=== PATIENT | male | born 1940 | race Caucasian/White ===

== ENCOUNTER 2018-06-11 19:37 | Observation (INO) ==
[2018-06-11] MEDS ORDERED: LIDOCAINE JEL 2% 1 TUBE 30GM TOPICAL ONE (19:43)
--- NOTE | 2018-06-11 20:18 | Emergency Department Note ---
Male Urogenital HPI - General Chief complaint: Urogenital-Male Stated complaint: bleeding post turp Time Seen by Provider: 06/11/18 19:39 Source: patient Mode of arrival: ambulatory Limitations: no limitations - History of Present Illness HPI Narrative: 78-year-old male presents with urinary retention and blood clots causing his urinary retention and the catheter. He had a TURP this morning by Dr. Maharaj. He has had intermittent problems with this all day and has been to the office a couple times and they change the catheter and irrigated it but the last couple hours he feels like he really needs to void and is unable to void again. It appears to have clots in his catheter and he thinks it has clotted off again. Is very uncomfortable and feels like he needs to void. No fever chills. No nausea, vomiting, or diarrhea. He is on Eliquis but he has not taken it for a couple days as he was directed not to. - Related Data Home Medications Medication Instructions Recorded Confirmed apixaban 5 mg tablet 5 mg PO BID 06/24/16 06/11/18 Cholestoff Plus 900 mg PO 07/02/16 06/11/18 lisinopril 20 mg tablet 20 mg PO BID tab 01/19/18 06/11/18 Previous Rx's Medication Instructions Recorded dutasteride 0.5 mg capsule 0.5 mg PO TID #90 cap 01/19/18 tamsulosin 0.4 mg capsule 0.4 mg PO QDAY #90 cap 01/19/18 Allergies Allergy/AdvReac Type Severity Reaction Status Date / Time penicillin G AdvReac Severe Rash Verified 06/11/18 14:56 Past Medical History - Past Medical History [facility] Narrative: Medical History (Last Reviewed 01/19/18 @ 09:26 by Deb Ji RN) Change in bowel habits (Chronic) Arthritis (Chronic) Prostate troubles (Chronic) Fatigue (Chronic) Hypertension (Chronic) Hyperlipidemia (Chronic) Neoplasm of skin, benign (Chronic) Hemangioma (Chronic) Osteopenia (Chronic) Scar (Chronic) Obstructive nephropathy (Chronic) Urinary urgency (Chronic) Family history of prostate cancer (Chronic) BPH (benign prostatic hyperplasia) (Chronic) Afib (Acute) Hemorrhoids (Acute) Sleep apnea (Acute) - Social History smoking status: Never smoker Alcohol use: Reports: None Drug use: Reports: none Physical Exam Limitations: no limitations General appearance: alert, in no apparent distress Head: atraumatic, normocephalic, normal inspection Eye: Present: normal appearance. Absent: conjunctival injection ENT: mucous membranes moist Chest: Present: normal inspection, symmetric chest wall rise Respiratory: Present: normal lung sounds bilaterally. Absent: respiratory distress, wheezes, accessory muscle use Cardiovascular: Present: regular rate, normal heart sounds Abdominal: Present: soft, distention (Distention over the bladder), normal bowel sounds, other (Catheter not draining and obviously plugged with clots on arrival.). Absent: tenderness, guarding, mass Neurological: Present: alert, oriented X3 Psychiatric: Present: normal affect, normal mood Skin: Present: warm, dry, intact, normal color Course Course Narrative: Dr. Maharaj did call and tell us this patient was coming. He wanted us to do some continuous bladder irrigation until clear. We did place a irrigation catheter, patient tolerated well and was doing better once he is able to void but still having some spasms and pain as well. I did speak with Dr. Maharaj who would like to have me put some admitting orders in him for him for continuous bladder irrigation throughout the night and he will see him in the morning. Vital Signs Temperature 97.5 F 06/11/18 19:37 Pulse Rate 82 06/11/18 19:37 Respiratory Rate 14 06/11/18 19:37 Blood Pressure 159/117 06/11/18 19:37 Pulse Oximetry (%) 97 06/11/18 19:37 Temperature 97.5 F 06/11/18 19:37 Pulse Rate 82 06/11/18 19:37 Respiratory Rate 14 06/11/18 19:37 Blood Pressure 159/117 06/11/18 19:37 Pulse Oximetry (%) 97 06/11/18 19:37 Urogenital-Male - Lab Data Result diagrams: 06/11/18 20:15 06/11/18 20:15 Disposition Pt seen by AIR QUALITY MANAGER/PA only: Yes Clinical Impression: Urinary retention, S/P TURP Disposition: Xfer As Outpt/Obs ([facility]) Condition: Fair Referrals: Johny Walker MD [Primary Care Provider] - Edil Maharaj MD [Physician] - Time of Disposition: 20:30
[2018-06-11] MEDS ORDERED: ONDANSETRON 4 MG/2 ML VIAL IV PRN (20:28)
[2018-06-11] MEDS: HYDROmorphone 2 MG/ML VIAL IV PRN (20:45)
[2018-06-11] MEDS ORDERED: CEPHALEXIN 500 MG CAPSULE PO SCH (21:00)
[2018-06-11 21:13] LABS: Basophils # (Auto) 0.1 K/mcL (0.0-0.3); Basophils % (Auto) 0.3 % (0.0-2.0); Eosinophils # (Auto) 0 K/mcL (0.0-0.7); Eosinophils % (Auto) 0 % (0.0-7.0); Granulocytes % (Auto) 93.2 % (38.0-78.0); Lymphocytes # (Auto) 0.6 K/mcL (1.5-4.8); Lymphocytes % (Auto) 3.3 % (15.5-49.0); Mean Cell Volume 92.9 fL (80.0-100.0); Mean Corpuscular Hemoglobin 31.6 pg (26.0-34.0); Monocytes # (Auto) 0.6 K/mcL (0.1-0.9); Monocytes % (Auto) 3.2 % (1.0-12.0); Platelet Count 269 K/mcL (140-440); RBC 4.62 M/mcL (4.50-5.90); Red Cell Distribution Width 13.4 % (11.5-14.5)
[2018-06-11 21:47] LABS: ALT/SGPT 15 U/l (0-40); Albumin 4.4 gm/dL (3.2-5.2); Albumin/Globulin Ratio 1.6 (1.0-2.3); Alkaline Phosphatase 123 U/L (39-117); Blood Urea Nitrogen 13 mg/dl (8-23)
[2018-06-11] MEDS: 0.9 % SODIUM CHLORIDE 1,000 ML IV SCH (21:57)
[2018-06-12 05:39] LABS: ALT/SGPT 14 U/l (0-40); Albumin 3.8 gm/dL (3.2-5.2); Albumin/Globulin Ratio 1.7 (1.0-2.3); Alkaline Phosphatase 114 U/L (39-117); Blood Urea Nitrogen 12 mg/dl (8-23)
--- NOTE | 2018-06-12 07:23 | History and Physical Report ---
DATE OF ADMISSION: 06/11/2018 ADMITTING DIAGNOSIS: Hematuria. HISTORY OF PRESENT ILLNESS: The patient is a 78-year-old gentleman who earlier today went to surgery for photovaporization of the prostate for symptomatic BPH. He is on Eliquis and at the time of surgery we did not stop this because of his atrial fibrillation and his urine was fairly clear when he went home. During the day, he did develop clots and had to be seen in the office twice for irrigation. He continued to have some bleeding and was seen in the emergency room last night. The emergency room did do irrigation and admitted him for observation. He denies any lightheadedness or dizziness, feels like he empties his bladder. He presents now for treatment. PAST MEDICAL HISTORY: Arthritis, hyperlipidemia, atrial fibrillation, sleep apnea. PAST SURGICAL HISTORY: Photovaporization of the prostate. FAMILY HISTORY: Stroke, atrial fibrillation. SOCIAL HISTORY: He is , retired, does not smoke, and does not drink. CURRENT MEDICATIONS: 1. Eliquis. 2. Lisinopril. 3. Selenium. 4. Zinc. 5. Flomax. ALLERGIES: PENICILLIN G. REVIEW OF SYSTEMS: HEART AND CARDIAC: No chest pain, irregular rhythm. ABDOMEN: Denies any bowel problems. No constipation. NEUROLOGICAL: No stroke, no headaches. The rest of a 14-point review of systems is negative. PHYSICAL EXAMINATION: GENERAL: This is a very pleasant gentleman in no apparent distress. VITAL SIGNS: As listed per nurse's notes. NECK: Supple. Trachea in the midline. HEART: Regular rate and rhythm. LUNGS: Clear to auscultation. ABDOMEN: Soft, nontender. GENITOURINARY: Scrotum without lesion. Epididymides without cyst. Testicles normal size and consistency, meatus in its proper position, does have a Vazquez catheter, which is draining red-tinged urine. Prostate is 35 grams, smooth, no nodules. Seminal vesicles without tenderness. Anus and perineum are normal. INTEGUMENT: Without lesions. LYMPHATIC: No adenopathy. PSYCHOLOGICAL: Alert and oriented x3. Cranial nerves II-XII grossly intact. LABORATORY DATA: His hematocrit is 43 and his sodium level is 129. IMPRESSION AND PLAN: Patient with clot retention. This is secondary to his Eliquis. He stopped the Eliquis and we have been keeping him on continuous bladder irrigation. His urine is clearing and I was able to irrigate some clots free this morning. We will continue the irrigation to see how he does. Hopefully, we will be able to discontinue the Vazquez in the near future. I have gone over this with him. He understands and will follow up while in the hospital. MANASA:jerome Job ID: [id number] Doc ID: [id number] Edil Maharaj MD
[2018-06-12] MEDS ORDERED: TAMSULOSIN 0.4 MG CAPSULE PO SCH (09:00)
[2018-06-12] MEDS ORDERED: LISINOPRIL 10 MG TABLET PO SCH (09:00)
[2018-06-12] MEDS: APIXABAN 5 MG TABLET PO SCH ×2 (09:49→20:24)
[2018-06-12] MEDS: CEPHALEXIN 500 MG CAPSULE PO SCH ×2 (09:58→20:23)
[2018-06-12] MEDS: ZINC SULFATE 50 MG CAPSULE PO SCH (09:59)
[2018-06-12] MEDS: 0.9 % SODIUM CHLORIDE 1,000 ML IV SCH (11:25)
[2018-06-12] MEDS ORDERED: LISINOPRIL 20 MG TABLET PO SCH (21:00)
[2018-06-13] MEDS: 0.9 % SODIUM CHLORIDE 1,000 ML IV SCH (00:01)
[2018-06-13] MEDS: HYDROmorphone 2 MG/ML VIAL IV PRN (04:16)
[2018-06-13 06:38] LABS: Mean Cell Volume 93.6 fL (80.0-100.0); Mean Corpuscular HGB Conc 33.9 g/dL (31.0-36.0); Mean Corpuscular Hemoglobin 31.7 pg (26.0-34.0); Platelet Count 174 K/mcL (140-440); RBC 2.83 M/mcL (4.50-5.90); Red Cell Distribution Width 13.9 % (11.5-14.5)
[2018-06-13 07:05] LABS: Blood Urea Nitrogen 12 mg/dl (8-23)
[2018-06-13] MEDS: ZINC SULFATE 50 MG CAPSULE PO SCH (09:52)
[2018-06-13] MEDS: CEPHALEXIN 500 MG CAPSULE PO SCH (09:52)
--- NOTE | 2018-06-13 12:06 | Discharge Plan ---
Discharge Plan - Patient/Caregiver Discharge Instructions Activity: increase activity as tolerated Diet: Regular Diet Additional Instructions: continue antibiotic - Follow up Plan Follow up with: Johny Walker MD [Primary Care Provider] - Edil Maharaj MD [Physician] - Disposition: Home, Self-Care Prognosis: Good Rehab Potential: Good
--- NOTE | 2018-06-13 12:09 | General Surgery Progress Note ---
Surgical - Auxillary Note - Subjective Patient Information: Note initiated : 06/13/18 at 12:08 pm Service Date, if different from initiated Date: [] Patient: Johny Umaña 78 y/o M admitted on 06/11/18 for Bleeding Post Turp/ Hematuria. Chief Complaint: [] CBI stopped and catheter removed. Pt. able to void. will d/c to home.
--- NOTE | 2018-06-13 16:38 | Discharge Summary ---
DATE OF ADMISSION: 06/11/2018 DATE OF DISCHARGE: 06/13/2018 ADMITTING DIAGNOSIS: Hematuria. POSTOPERATIVE DIAGNOSIS: Hematuria. PROCEDURE DONE: Continuous bladder irrigation. STAFF: Edil Maharaj MD. INDICATION: The patient is a 78-year-old gentleman, who underwent a photovaporization of the prostate on 06/11. Postoperatively, he did have bleeding. He was irrigated in the office twice and still continued to bleed. He was seen in the emergency room and was admitted for hematuria. HOSPITAL COURSE: The patient was started on continuous irrigation, and his Eliquis was stopped. Eventually his urine cleared and this morning, we removed his catheter, and he was able to void spontaneously. His urine is clear. We would keep him off the Eliquis for another day or so and then start the antibiotics. I have explained this to him and he understands. If there is a problem, he will give us a call. His hematocrit decreased down to 27, but was asymptomatic and this may be dilutional. We will plan to see him back in 2 weeks and if there is a problem before then, he will let me know. RZ:in Job ID: [id number] Doc ID: [id number] Edil Maharaj MD
== END 2018-06-13 12:40 | disposition home or self-care (01) ==
LOC: ED 19:37 → MEDSUR 19:37

== ENCOUNTER 2021-10-13 09:21 | Inpatient (IN) ==
[2021-10-13] MEDS ORDERED: IOPAMIDOL 100 ML BOTTLE IV ONE (09:22)
--- NOTE | 2021-10-13 09:32 | Emergency Department Note ---
HPI General Chief complaint: Abdominal Pain Stated complaint: abdominal distention Time Seen by Provider: 10/13/21 09:32 Source: patient and family Mode of arrival: wheelchair Limitations: no limitations History of Present Illness HPI Narrative: 81-year-old male with past medical history of pancreatic cancer status post Whipple, BPH, and hypertension presenting with abdominal distention. He states over the last week he has had worsening abdominal distention that is now becoming painful and is having difficulty sleeping. He is scheduled for paracentesis on Friday but came in because he feels like he cannot wait that long. He also reports that he has not been eating much and has had multiple episodes of nonbloody, nonbilious emesis. States his last bowel movement was 3 days ago. He does not feel like he is passing gas. States he is currently being treated for his pancreatic cancer at the cancer center locally. No fever, chest pain, shortness of breath, dysuria, hematuria, or leg swelling. He is on Eliquis but last took it yesterday morning. Related Data Home Medications Medication Instructions Recorded Confirmed apixaban 5 mg tablet (Eliquis) 5 mg PO BID 06/24/16 10/13/21 irbesartan 300 mg tablet 300 mg PO QDAY 12/15/18 10/13/21 metformin 500 mg tablet 500 mg PO QDAY tab 12/15/18 10/13/21 levothyroxine 50 mcg capsule 50 mcg PO QDAY 09/24/19 10/13/21 [id number] 1 cap PO 5XD 10/13/21 10/13/21 36,000-114,000-180,000 unit capsule,delay rel (Creon) Previous Rx's Medication Instructions Recorded CPAP #1 ea 09/29/19 Auto-PaP #1 ea 10/07/19 Allergies Allergy/AdvReac Type Severity Reaction Status Date / Time penicillin G AdvReac Severe Rash Verified 10/13/21 09:24 seasonal allergies AdvReac Intermediate Watery Eye Uncoded 02/16/20 14:45 Review of Systems ROS ROS Narrative: Narrative: Constitutional: Denies fever or chills ENT ED: Denies throat pain Cardiovascular: Denies chest pain or palpitations Respiratory: Denies shortness of breath or cough Gastrointestinal: Reports abdominal pain, nausea and vomiting; Denies diarrhea, hematochezia or melena Genitourinary: Denies dysuria or frequency Musculoskeletal: Denies back pain or joint swelling Integumentary: Denies rash Neurological: Denies headache or weakness Psychiatric: Denies anxiety Endocrine: Denies fatigue Hematological/Lymphatic: Denies easy bleeding or easy bruising PFSH Narrative Patient History Narrative: Narrative: Medical/Surgical/Family History All Active Problems (Updated 10/13/21 @ 13:57 by Kirill Venegas MD) Fever (Acute) Hyperglycemia (Acute) Cystitis (Acute) Fever of unknown origin (FUO) (Acute) Ascites (Acute) Hyponatremia (Acute) Mumps (Chronic) Measles (Chronic) Obstructive sleep apnea (Chronic) Urinary retention (Chronic) S/P TURP (Chronic) Hemorrhoids (Chronic) Afib (Chronic) Sleep apnea (Chronic) Change in bowel habits (Chronic) Arthritis (Chronic) Prostate troubles (Chronic) Fatigue (Chronic) Hypertension (Chronic) Hyperlipidemia (Chronic) Neoplasm of skin, benign (Chronic) Hemangioma (Chronic) Osteopenia (Chronic) Scar (Chronic) Obstructive nephropathy (Chronic) Urinary urgency (Chronic) Family history of prostate cancer (Chronic) BPH (benign prostatic hyperplasia) (Chronic) Medical History (Updated 10/13/21 @ 13:57 by Kirill Venegas MD) Afib Arthritis BPH (benign prostatic hyperplasia) Change in bowel habits Family history of prostate cancer Fatigue Hemangioma Hemorrhoids Hyperlipidemia Hypertension Measles Mumps Neoplasm of skin, benign Obstructive nephropathy Obstructive sleep apnea Osteopenia Prostate troubles Scar Sleep apnea Urinary urgency Surgical History History of prostate surgery (~06/11/19) Status post catheter ablation of atrial fibrillation (~06/2013) 07/25/2016 Family History Mother Stroke Father Coronary heart disease Prostate cancer Hypertension Brother Afib Son Diabetes Family/Other Gout Paternal Uncle Diabetes mellitus, type II Siblings Cancer Siblings, Children Coronary heart disease Siblings Social History Smoking Status: Never smoker Alcohol Intake Frequency: does not drink Substance Use: does not use Exam Narrative Narrative: Narrative: General Limitations: no limitations General appearance: Present alert and in no apparent distress Head Head: Present atraumatic and normocephalic Eye Eye: Present normal appearance and EOMI; Absent scleral icterus or conjunctival injection ENT ENT: Present mucous membranes moist Neck Neck: Present normal inspection, full ROM and trachea midline; Absent meningismus or lymphadenopathy Chest Chest: Present symmetric chest wall rise Respiratory Respiratory: Present normal lung sounds bilaterally; Absent respiratory distress, wheezes, stridor, accessory muscle use or prolonged expiratory phase Cardiovascular Cardiovascular: Present regular rate and normal rhythm; Absent systolic murmur or diastolic murmur Adbominal Abdominal: Present distention (Moderate distention present, abdomen not peritonitic); Absent tenderness, guarding, rebound, rigidity, organomegaly or mass Extremities Extremities: Present normal inspection; Absent pretibial edema Back Back: Present normal inspection; Absent CVA tenderness (R) or CVA tenderness (L) Neurological Neurological: Present alert and oriented X3; Absent motor sensory deficit Psychiatric Psychiatric: Present normal affect and normal mood Skin Skin: Present warm (WNL) and dry Course Consultations Consultation #1: Dr. Golden, hospitalist Time: 14:01 Vital Signs Vital signs: Vital Signs Pulse Rate 98 H 10/13/21 09:22 Respiratory Rate 16 10/13/21 09:22 Blood Pressure 133/76 10/13/21 09:22 Pulse Oximetry (%) 98 10/13/21 09:22 Pulse Rate 88 10/13/21 13:30 Respiratory Rate 16 10/13/21 09:22 Blood Pressure 138/84 10/13/21 13:30 Pulse Oximetry (%) 98 10/13/21 13:30 MDM MDM Narrative Medical decision making narrative: 81-year-old male presenting with abdominal distention in the setting of pancreatic cancer. He also reportedly had an outpatient CT which showed malignant lesions in the abdomen. Vital signs are stable. Abdomen is distended but not tender. Given his decreased bowel movements and vomiting, will obtain labs and CT abdomen to evaluate for bowel obstruction. Labs notable for leukocytosis to 16.1 and hyponatremia to 124. He was given 1 L of normal saline. CT abdomen shows peritoneal carcinomatosis with massive ascites but no evidence of bowel obstruction. Will admit for hydration, as well as diagnostic and therapeutic paracentesis. Patient endorsed to Dr. Golden, admitting hospitalist. Lab Data Lab results reviewed: Yes I reviewed the patient's lab results. Result diagrams: 10/13/21 10:01 10/13/21 10:01 Labs: Lab Results 10/13/21 10/13/21 10/13/21 Range/Units 10:01 10:01 10:01 WBC 16.1 H (4.5-11.0) K/mcL RBC 3.72 L (4.63-6.08) M/mcL Hgb 9.8 L (13.7-17.5) g/dL Hct 29.8 L (40.1-51.0) % MCV 80.1 (80.0-100.0) fL MCH 26.3 (26.0-34.0) pg MCHC 32.9 (31.0-36.0) g/dL RDW 15.7 H (11.5-14.5) % Plt Count 790 H (140-440) K/mcL MPV 9.4 (7.4-10.4) fL Neut % (Auto) 84.9 H (38.0-78.0) % Lymph % (Auto) 4.2 L (15.5-49.0) % Worth % (Auto) 10.6 (1.0-12.0) % Eos % (Auto) 0.1 (0.0-7.0) % Baso % (Auto) 0.2 (0.0-2.0) % Lymph # (Auto) 0.67 L (1.50-4.80) K/mcL Worth # (Auto) 1.70 H (0.10-0.90) K/mcL Eos # (Auto) 0.02 (0.00-0.70) K/mcL Baso # (Auto) 0.04 (0.00-0.30) K/mcL Absolute Neutrophils 13.68 H (1.80-8.00) K/mcL PT 17.8 H (11.9-14.5) sec INR 1.4 H (0.9-1.1) Sodium 124 L (133-145) mmol/L Potassium 3.4 (3.3-5.1) mmol/L Chloride 86 L (96-108) mmol/L Carbon Dioxide 22 (22-30) mmol/L Anion Gap 16.0 (8.0-16.0) BUN 19 (8-23) mg/dL Creatinine 1.1 (0.7-1.2) mg/dL POC Creatinine (0.6-1.2) mg/dL GFR Calculation 63 Glucose 173 H (70-105) mg/dL Calcium 8.5 L (8.6-10.4) mg/dL Total Bilirubin 0.4 (0.1-1.0) mg/dL AST 22 (<40) U/L ALT 12 (<40) U/L Alkaline Phosphatase 149 H (39-117) U/L Total Protein 6.1 (5.9-8.4) gm/dL Albumin 3.3 (3.2-5.2) gm/dL Globulin 2.8 (2.2-3.7) gm/dL Albumin/Globulin Ratio 1.2 (1.0-2.3) Lipase 4 L (7-60) U/L 10/13/21 Range/Units 10:15 WBC (4.5-11.0) K/mcL RBC (4.63-6.08) M/mcL Hgb (13.7-17.5) g/dL Hct (40.1-51.0) % MCV (80.0-100.0) fL MCH (26.0-34.0) pg MCHC (31.0-36.0) g/dL RDW (11.5-14.5) % Plt Count (140-440) K/mcL MPV (7.4-10.4) fL Neut % (Auto) (38.0-78.0) % Lymph % (Auto) (15.5-49.0) % Worth % (Auto) (1.0-12.0) % Eos % (Auto) (0.0-7.0) % Baso % (Auto) (0.0-2.0) % Lymph # (Auto) (1.50-4.80) K/mcL Worth # (Auto) (0.10-0.90) K/mcL Eos # (Auto) (0.00-0.70) K/mcL Baso # (Auto) (0.00-0.30) K/mcL Absolute Neutrophils (1.80-8.00) K/mcL PT (11.9-14.5) sec INR (0.9-1.1) Sodium (133-145) mmol/L Potassium (3.3-5.1) mmol/L Chloride (96-108) mmol/L Carbon Dioxide (22-30) mmol/L Anion Gap (8.0-16.0) BUN (8-23) mg/dL Creatinine (0.7-1.2) mg/dL POC Creatinine 1.2 (0.6-1.2) mg/dL GFR Calculation Glucose (70-105) mg/dL Calcium (8.6-10.4) mg/dL Total Bilirubin (0.1-1.0) mg/dL AST (<40) U/L ALT (<40) U/L Alkaline Phosphatase (39-117) U/L Total Protein (5.9-8.4) gm/dL Albumin (3.2-5.2) gm/dL Globulin (2.2-3.7) gm/dL Albumin/Globulin Ratio (1.0-2.3) Lipase (7-60) U/L ED POC Tests ED POC Tests: DANIELLA - SARS Antigen Negative Discharge Plan Patient/Caregiver Discharge Instructions Pt seen by SUPERVISOR CELL MAINTENANCE/PA only: No Clinical Impression: Ascites, Hyponatremia Patient Disposition: Xfer As Inpt ([facility]) Condition: Fair Follow up with: Jennifer Wright MD [Primary Care Provider] - Prescriptions: No Action (DME) CPAP Qty: 1 0RF Rx Instructions: pressure at [id number] pressure with mask and supplies. (DME) Auto-PaP Qty: 1 0RF Rx Instructions: change pressures to [id number]. metformin 500 mg tablet 500 mg PO QDAY 0RF irbesartan 300 mg tablet 300 mg PO QDAY 0RF apixaban [Eliquis] 5 mg tablet 5 mg PO BID 0RF levothyroxine 50 mcg capsule 50 mcg PO QDAY 0RF Creon 36,000-114,000- 180,000 unit capsule,delayed release(DR/EC) 1 cap PO 5XD 0RF
[2021-10-13 10:24] LABS: POC Creatinine 1.2 mg/dL (0.6-1.2)
[2021-10-13] MEDS ORDERED: 0.9 % SODIUM CHLORIDE 500 ML IV ONE ×2 (10:38→13:27)
[2021-10-13 10:39] LABS: Basophils # (Auto) 0.04 K/mcL (0.00-0.30); Basophils % (Auto) 0.2 % (0.0-2.0); Eosinophils # (Auto) 0.02 K/mcL (0.00-0.70); Eosinophils % (Auto) 0.1 % (0.0-7.0); Hematocrit 29.8 % (40.1-51.0); Hemoglobin 9.8 g/dL (13.7-17.5); Lymphocytes # (Auto) 0.67 K/mcL (1.50-4.80); Lymphocytes % (Auto) 4.2 % (15.5-49.0); Mean Cell Volume 80.1 fL (80.0-100.0); Mean Corpuscular HGB Conc 32.9 g/dL (31.0-36.0); Mean Platelet Volume 9.4 fL (7.4-10.4); Monocytes % (Auto) 10.6 % (1.0-12.0); Neutrophils % (Auto) 84.9 % (38.0-78.0); Platelet Count 790 K/mcL (140-440); RBC 3.72 M/mcL (4.63-6.08); Red Cell Distribution Width 15.7 % (11.5-14.5); WBC 16.1 K/mcL (4.5-11.0)
[2021-10-13 11:00] LABS: ALT/SGPT 12 U/L (<40); AST/SGOT 22 U/L (<40); Albumin 3.3 gm/dL (3.2-5.2); Albumin/Globulin Ratio 1.2 (1.0-2.3); Alkaline Phosphatase 149 U/L (39-117); Bilirubin,Total 0.4 mg/dL (0.1-1.0); Blood Urea Nitrogen 19 mg/dL (8-23); Calcium 8.5 mg/dL (8.6-10.4); Carbon Dioxide 22 mmol/L (22-30); Chloride 86 mmol/L (96-108); Globulin 2.8 gm/dL (2.2-3.7); Glomerular Filtration Rate 63; Glucose 173 mg/dL (70-105); INR 1.4 (0.9-1.1); Prothrombin Time 17.8 sec (11.9-14.5)
--- NOTE | 2021-10-13 12:47 | Cat Scan Report ---
CLINICAL INFORMATION: History of pancreatic cancer. Ascites distention COMPARISON: Abdomen CT 04/18/2010 and MRI four 11/04/2019 TECHNIQUE: Following enteric contrast, 80 cc of Isovue-370 were injected intravenously, and 60 seconds later, 0.625 mm helical slices were obtained from the mid heart through the subtrochanteric regions. Following reconstruction, 2.5 mm sagittal, coronal and axial reformatted images were processed and reviewed at bone, lung and soft tissue windows. Five minutes later, 0.625 mm helical slices were obtained from the mid heart through the kidneys and viewed at soft tissue windows.The exam was performed using radiation dose optimization techniques including, but not limited to, automated exposure control, adjustment of the mA and/or kV according to patient size and use of iterative reconstruction technique. FINDINGS: The lung bases are clear. Small bilateral pleural effusions appreciated.. The visualized heart is grossly normal. Abdominal images show the liver is decreased in size with mildly inhomogeneous suggestive, but not diagnostic, of cirrhosis. A 20 mm low-attenuation lesion in the posterior segment of the right hepatic lobe is likely a metastases. The gallbladder is surgically absent. Whipple procedure changes including resection of the pancreatic head neck, duodenum and common bile duct. Anastomosis of the jejunum to the pancreatic body and choledochojejunostomy appreciated. Typical postoperative appearance. The spleen, both adrenal glands kidneys and aorta including aortic branches are normal in size configuration and attenuation without significant focal lesion. Pelvic images through the prostate is moderately enlarged and inhomogeneous. There is a 10 mm polyp arising from the posterior bladder base. Extensive peritoneal carcinomatosis features massive ascites, scattered omental caking and stranding and distortion of the small bowel mesentery. There is a 5 cm metastatic deposit over the peritoneal reflection in the inferior left hepatic lobe low. Bone windows show no osseous abnormality IMPRESSION: 1. Status post Whipple procedure for pancreatic carcinoma. Extensive peritoneal carcinomatosis featuring massive ascites, scattered omental caking, stranding and distortion of the small bowel mesentery with a 5 cm metastatic deposit over the peritoneal reflection of the left hepatic lobe. There is also a 2 cm metastasis in the posterior segment of the right hepatic lobe. 2. Small bilateral pleural effusions. 3. Possible cirrhosis-diminutive liver with inhomogeneous attenuation. 4. 10 mm polyp arising from the posterior urinary bladder base. 5. Moderate prostate enlargement with inhomogeneous attenuation. This likely represents benign prostatic hypertrophy, but prostatic malignancy not excluded Interpreted and Authenticated by: Antony Gill 10/13/21
[2021-10-13] MEDS ORDERED: morphine 2 MG/ML VIAL IV ONE (14:49)
[2021-10-13] MEDS ORDERED: ACETAMINOPHEN 325 MG TABLET PO PRN (15:26)
[2021-10-13] MEDS ORDERED: ONDANSETRON 4 MG/2 ML VIAL IV PRN (15:26)
[2021-10-13] MEDS ORDERED: oxyCODONE HCL 5 MG TABLET PO PRN (15:26)
[2021-10-13] MEDS ORDERED: PROCHLORPERAZINE 10 MG/2 ML VIAL IV PRN (15:26)
[2021-10-13] MEDS ORDERED: HYDROmorphone 0.5 MG/0.5 ML SYRINGE IV PRN (15:26)
[2021-10-13] MEDS ORDERED: traZODone HCL 50 MG TABLET PO PRN (15:26)
[2021-10-13] MEDS ORDERED: NITROGLYCERIN 0.4 MG TAB.SUBL SL PRN (15:26)
[2021-10-13] MEDS ORDERED: BISACODYL 10 MG SUPP.RECT PR PRN (15:26)
[2021-10-13] MEDS ORDERED: MAGNESIUM HYDROXIDE 30 ML ORAL.SUSP PO PRN (15:26)
[2021-10-13] MEDS ORDERED: MAG HYDROX/AL HYDROX/SIMETH 30 ML ORAL.SUSP PO PRN (15:26)
[2021-10-13] MEDS ORDERED: ALBUTEROL SULFATE 2.5 MG/3 ML NEBULIZER NEB PRN (15:26)
[2021-10-13] MEDS ORDERED: NALOXONE HCL 0.4 MG/ML VIAL IV PRN (15:26)
--- NOTE | 2021-10-13 15:42 | Internal Med History&Physical ---
HPI History of Present Illness Patient information: Note initiated : 10/13/21 at 3:32 pm Service Date, if different from initiated Date: [] Patient: Johny Umaña 81 y/o M admitted on for abdominal distention. Chief Complaint: [] Chief complaint: abdominal distention History of present illness: Mr. Umaña is a 81 year old M wit h/o Cancer of the pancreas, status post Whipple's procedure approximately 2 years ago, subsequently developed recurrence and omental metastases, has been chemotherapy followed oncology locally. The patient it seems has not responded well to the chemotherapy agent. The patient is scheduled for an immunotherapy based chemotherapy next week. Over the last 1 week the patient has not been feeling well, he has had decreased appetite, nausea whenever he tries to eat some food, and progressive distention of abdomen. He denies any cough fever or chills. He denies any diarrhea, denies any blood in stools. No melena reported. The patient was scheduled for an outpatient paracentesis next week, however because of severe discomfort the patient presented to the hospital today. On my evaluation patient is hemodynamically stable, afebrile, lab work shows hyponatremia, patient is on Eliquis and last dose of Eliquis was yesterday morning. Given that the patient is in able to tolerate p.o., significant distention of the abdomen, patients can be admitted to the hospital for further management. Review of Systems All systems: reviewed and no additional remarkable complaints except as stated PFSH PFSH All Active Problems Ascites (Acute) Fever (Acute) Hyperglycemia (Acute) Cystitis (Acute) Fever of unknown origin (FUO) (Acute) Hyponatremia (Acute) Mumps (Chronic) Measles (Chronic) Obstructive sleep apnea (Chronic) Urinary retention (Chronic) S/P TURP (Chronic) Hemorrhoids (Chronic) Afib (Chronic) Sleep apnea (Chronic) Change in bowel habits (Chronic) Arthritis (Chronic) Prostate troubles (Chronic) Fatigue (Chronic) Hypertension (Chronic) Hyperlipidemia (Chronic) Neoplasm of skin, benign (Chronic) Hemangioma (Chronic) Osteopenia (Chronic) Scar (Chronic) Obstructive nephropathy (Chronic) Urinary urgency (Chronic) Family history of prostate cancer (Chronic) BPH (benign prostatic hyperplasia) (Chronic) Medical History Afib Arthritis Ascites BPH (benign prostatic hyperplasia) Change in bowel habits Family history of prostate cancer Fatigue Hemangioma Hemorrhoids Hyperlipidemia Hypertension Measles Mumps Neoplasm of skin, benign Obstructive nephropathy Obstructive sleep apnea Osteopenia Prostate troubles Scar Sleep apnea Urinary urgency Surgical History History of prostate surgery (~06/11/19) Status post catheter ablation of atrial fibrillation (~06/2013) 07/25/2016 Family History Mother Stroke Father Coronary heart disease Prostate cancer Hypertension Brother Afib Son Diabetes Family/Other Gout Paternal Uncle Diabetes mellitus, type II Siblings Cancer Siblings, Children Coronary heart disease Siblings Social History marital status: occupational status: retired alcohol intake frequency: does not drink substance use type: does not use MEDS/ALLERGIES Home Medications and Allergies Home Medications Medication Instructions Recorded Confirmed Type apixaban 5 mg tablet (Eliquis) 5 mg PO BID 06/24/16 10/13/21 History irbesartan 300 mg tablet 300 mg PO QDAY 12/15/18 10/13/21 History metformin 500 mg tablet 500 mg PO QDAY tab 12/15/18 10/13/21 History levothyroxine 50 mcg capsule 50 mcg PO QDAY 09/24/19 10/13/21 History CPAP #1 ea 09/29/19 10/13/21 Rx Auto-PaP #1 ea 10/07/19 10/13/21 Rx [id number] 1 cap PO 5XD 10/13/21 10/13/21 History 36,000-114,000-180,000 unit capsule,delay rel (Creon) Allergies Allergy/AdvReac Type Severity Reaction Status Date / Time penicillin G AdvReac Severe Rash Verified 10/13/21 09:24 seasonal allergies AdvReac Intermediate Watery Eye Uncoded 02/16/20 14:45 EXAM Constitutional Vitals: Pulse Resp BP Pulse Ox 90 16 140/79 97 10/13/21 15:16 10/13/21 09:22 10/13/21 15:16 10/13/21 15:16 General appearance: average body habitus, cooperative and no acute distress Head Head exam: Present atraumatic and normal inspection Expanded Head Exam Head exam: Absent Cooper's sign or raccoon eyes Eye Eye exam: Present conjunctival injection, EOMI and PERRL; Absent scleral icterus ENT ENT exam: Present mucous membranes dry Neck Neck exam: Present full ROM and normal inspection Respiratory Respiratory exam: Present normal respiratory exam; Absent accessory muscle use, respiratory distress or wheezes GI/Abdominal GI/Abdominal exam: Present diminished bowel sounds and distended Additional comments: tense ascitis Rectal Rectal exam: Present deferred Extremities Exam Extremities exam: Present normal capillary refill and pedal edema Neurological Exam Neurological exam: Present alert, CN II-XII intact and oriented X3; Absent motor sensory deficit Psychiatric Psychiatric exam: Present normal affect and normal mood Skin Skin exam: Absent diaphoretic, rash or urticaria DATA Data Completed and Pending Labs: Labs from last 24 hours 10/13/21 10/13/21 10/13/21 10:15 10:01 10:01 WBC RBC Hgb Hct MCV MCH MCHC RDW Plt Count MPV Neut % (Auto) Lymph % (Auto) [place] % (Auto) Eos % (Auto) Baso % (Auto) Lymph # (Auto) [place] # (Auto) Eos # (Auto) Baso # (Auto) Absolute Neutrophils PT 17.8 H INR 1.4 H Sodium 124 L Potassium 3.4 Chloride 86 L Carbon Dioxide 22 Anion Gap 16.0 BUN 19 Creatinine 1.1 POC Creatinine 1.2 GFR Calculation 63 Glucose 173 H Calcium 8.5 L Total Bilirubin 0.4 AST 22 ALT 12 Alkaline Phosphatase 149 H Total Protein 6.1 Albumin 3.3 Globulin 2.8 Albumin/Globulin Ratio 1.2 Lipase 4 L 10/13/21 10:01 WBC 16.1 H RBC 3.72 L Hgb 9.8 L Hct 29.8 L MCV 80.1 MCH 26.3 MCHC 32.9 RDW 15.7 H Plt Count 790 H MPV 9.4 Neut % (Auto) 84.9 H Lymph % (Auto) 4.2 L [place] % (Auto) 10.6 Eos % (Auto) 0.1 Baso % (Auto) 0.2 Lymph # (Auto) 0.67 L [place] # (Auto) 1.70 H Eos # (Auto) 0.02 Baso # (Auto) 0.04 Absolute Neutrophils 13.68 H PT INR Sodium Potassium Chloride Carbon Dioxide Anion Gap BUN Creatinine POC Creatinine GFR Calculation Glucose Calcium Total Bilirubin AST ALT Alkaline Phosphatase Total Protein Albumin Globulin Albumin/Globulin Ratio Lipase A/P Narrative A/P Narrative: A/P Ascitis, malignant Failure to thrive Hyponatremia, hypovolumic paroxsmal Atrial Fibrillation, rate controlled -on eliquis for anticoagulation Hypertension, essential H/o Metastatic Pancratic Cancer BPH HLD Leucoycytosis, suspect reactive, Plan Admit as inpatient IV fluids US guided paracentesis , send fluid for analsysis, will not send cytology given h/o ca pancreas check ua and chest x ray to r/o any infection monitor sodium Resume eiliquis tonight after paracentesis Resume home meds once verified. patient will eventually need IR consult for placement of a drain as outpatient. DVT - on eliquis Prognosis, guarded DNR status per and patients will Time Spent With Patient Time: Total time spent is greater than 50% in coordination of care (as documented) at patient's floor/unit and/or counseling patient:
[2021-10-13] MEDS ORDERED: ALBUMIN HUMAN 25 GM/100 ML BAG IV ONE (16:34)
[2021-10-13] MEDS: DEXTROSE 5%-LR 1,000 ML IV SCH (18:42)
[2021-10-13] MEDS: LIPASE/PROTEASE/AMYLASE 1 CAP CAPSULE PO SCH ×2 (18:42→21:53)
[2021-10-13 20:04] LABS: Eosinophils,Peritoneal Fluid 2 %; Monocyte,Peritoneal Fluid 69 %; Neutrophils,Peritoneal Fluid 27 %; Nucleated Cel,Peritoneal Fluid 9064 /cumm; RBC,Peritoneal Fluid <50,000 /cumm
[2021-10-13] MEDS: DOCUSATE SODIUM 100 MG CAPSULE PO SCH (20:26)
[2021-10-13] MEDS: FAMOTIDINE/PF 20 MG/2 ML VIAL IV SCH (20:27)
[2021-10-13] MEDS: APIXABAN 5 MG TABLET PO SCH (20:27)
[2021-10-13] MEDS: 0.9 % SODIUM CHLORIDE 10 ML SYRINGE IV SCH (20:29)
[2021-10-13] MEDS ORDERED: SENNOSIDES 1 TABLET PO SCH (21:00)
--- NOTE | 2021-10-14 03:00 | XRay Report ---
CLINICAL INFORMATION: Leukocytosis. Pancreatic cancer with peritoneal carcinomatosis COMPARISON: 05/16/2021 TECHNIQUE: PA and Lateral views FINDINGS: Right Port-A-Cath stable satisfactory position. The heart size, mediastinum and pulmonary vessels are unremarkable. The lungs are clear. There are no effusions. The bones and soft tissues are within normal limits. IMPRESSION: Normal chest. Interpreted and Authenticated by: Antony Gill 10/14/21
--- NOTE | 2021-10-14 03:03 | Ultrasound Report ---
Ultrasound-guided paracentesis Technique: The procedure and risks including possibility of bleeding, infection, bowel and parenchymal organ perforation were explained the patient. He understood and wished to proceed. Bus Girl scanning demonstrated Ascites in the right lower quadrant which was free of bowel. The skin was marked, prepped and locally anesthetized 1% lidocaine to the level of the parietal peritoneum using a 25-gauge needle. A 18-gauge Yueh needle was then placed under sonographic guidance into the ascites and 8 L of simple appearing ascites was aspirated and sent for requested studies. The needle was removed. Postprocedure scanning shows minimal residual ascites. No apparent complication - patient tolerated procedure well. IMPRESSION: Successful ultrasound-guided paracentesis yielding 8 L of simple appearing transudative ascites. Fluid was sent to the laboratory for requested studies. Postprocedure scanning shows only minimal residual fluid. Patient tolerated procedure well without apparent complication Interpreted and Authenticated by: Antony Gill 10/14/21
[2021-10-14] MEDS: 0.9 % SODIUM CHLORIDE 10 ML SYRINGE IV SCH ×2 (04:19→14:05)
[2021-10-14] MEDS: DEXTROSE 5%-LR 1,000 ML IV SCH (04:20)
[2021-10-14 07:11] LABS: Basophils # (Auto) 0.05 K/mcL (0.00-0.30); Basophils % (Auto) 0.3 % (0.0-2.0); Eosinophils # (Auto) 0.02 K/mcL (0.00-0.70); Eosinophils % (Auto) 0.1 % (0.0-7.0); Hematocrit 30.2 % (40.1-51.0); Hemoglobin 9.9 g/dL (13.7-17.5); Lymphocytes # (Auto) 0.51 K/mcL (1.50-4.80); Lymphocytes % (Auto) 3.3 % (15.5-49.0); Mean Cell Volume 80.7 fL (80.0-100.0); Mean Corpuscular HGB Conc 32.8 g/dL (31.0-36.0); Mean Platelet Volume 9.3 fL (7.4-10.4); Monocytes # (Auto) 1.89 K/mcL (0.10-0.90); Monocytes % (Auto) 12.2 % (1.0-12.0); Neutrophils % (Auto) 84.1 % (38.0-78.0); Platelet Count 674 K/mcL (140-440); RBC 3.74 M/mcL (4.63-6.08); Red Cell Distribution Width 15.5 % (11.5-14.5); WBC 15.5 K/mcL (4.5-11.0)
[2021-10-14] MEDS ORDERED: LEVOTHYROXINE 50 MCG TABLET PO SCH (07:30)
[2021-10-14] MEDS: LIPASE/PROTEASE/AMYLASE 1 CAP CAPSULE PO SCH ×3 (07:58→14:03)
[2021-10-14 08:21] LABS: ALT/SGPT 10 U/L (<40); AST/SGOT 17 U/L (<40); Albumin 2.9 gm/dL (3.2-5.2); Albumin/Globulin Ratio 1.3 (1.0-2.3); Alkaline Phosphatase 115 U/L (39-117); Bilirubin,Direct < 0.2 mg/dL (0-0.3); Bilirubin,Total 0.5 mg/dL (0.1-1.0); Blood Urea Nitrogen 14 mg/dL (8-23); Calcium 8.2 mg/dL (8.6-10.4); Carbon Dioxide 24 mmol/L (22-30); Chloride 92 mmol/L (96-108); Globulin 2.3 gm/dL (2.2-3.7); Glomerular Filtration Rate 84; Glucose 191 mg/dL (70-105); Lactate Dehydrogenase 150 U/L (135-225); Phosphorous 2.8 mg/dL (2.5-4.5); Triglycerides 60 mg/dL (<150); Uric Acid 6.5 mg/dL (2.5-8.0)
[2021-10-14] MEDS ORDERED: DEXTROSE 5%-NS W/20MEQ KCL 1,000 ML IV SCH (09:00)
[2021-10-14] MEDS ORDERED: NACL 0.9% W/KCL 20MEQ 1,000 ML IV SCH (09:15)
--- NOTE | 2021-10-14 09:19 | Internal Med Progress Note ---
SUBJECTIVE Subjective Patient information: Note initiated : 10/14/21 at 9:19 am Service Date, if different from initiated Date: [] Patient: Johny Umaña 81 y/o M admitted on 10/13/21 for abdominal distention. Chief Complaint: [] Principal diagnosis: Ascitis Interval history: History of present illness: Mr. Umaña is a 81 year old M wit h/o Cancer of the pancreas, status post Whipple's procedure approximately 2 years ago, subsequently developed recurrence and omental metastases, has been chemotherapy followed oncology locally. The patient it seems has not responded well to the chemotherapy agent. The patient is scheduled for an immunotherapy based chemotherapy next week. Over the last 1 week the patient has not been feeling well, he has had decreased appetite, nausea whenever he tries to eat some food, and progressive distention of abdomen. He denies any cough fever or chills. He denies any diarrhea, denies any blood in stools. No melena reported. The patient was scheduled for an outpatient paracentesis next week, however because of severe discomfort the patient presented to the hospital today. On my evaluation patient is hemodynamically stable, afebrile, lab work shows hyponatremia, patient is on Eliquis and last dose of Eliquis was yesterday morning. Given that the patient is in able to tolerate p.o., significant distention of the abdomen, patients can be admitted to the hospital for further management. 10/14 patietn seen examined, looks much better than yesterdfay Feels much better, abdominal pain improved Able to toleate po now Sodium still low at 126, Patients family is planning hospice, they need to get an IR directed paracentesis catheter first for comfort, which will be done as outpatient by IR at [facility] Await PT, Anticipate d/c tomorrow Pertinent ROS: Denies headache, dizziness Denies chest pain, palpitations Denies cough or shortness of breath Denies abdominal pain, nausea or vomiting. Constitutional Vitals: Vital Signs Temp Pulse Resp BP Pulse Ox 98 F 93 H 20 106/62 97 10/14/21 08:00 10/14/21 04:00 10/14/21 08:00 10/14/21 08:00 10/14/21 08:00 Period Temp Pulse Resp BP Sys/Lainez Pulse Ox Last 24 Hr 97.5 F-98.1 F 86-100 12-20 100-149/58-94 95-100 Intake and Output 10/13/21 10/14/21 10/14/21 21:59 05:59 13:59 Intake Total 600 1163 Balance 600 1163 Weight 65.816 kg Intake & Output: Intake & Output 10/13/21 10/14/21 10/14/21 21:59 05:59 13:59 Intake Total 600 1163 Balance 600 1163 Weight 65.816 kg Intake: IV 600 963 Sodium Chloride 0.9% 500 ml @ 500 Wide Open IV BOLUS ONE Rx#: [id number] Dextrose 5%-Lactated Ringers 1, 963 000 ml @ 100 mls/hr IV .Q10H RAY Rx#:[id number] Oral 200 Other: Meal Dinner Percent of Meal Consumed 75% # Voids 1 Additional findings Additional findings: Physical Exam Constitutional; Afebrile, cooperative, alert, not in distress. Eyes- No icterus, , No periorbital swelling Ears- Ext ear normal, hearing normal to conversation. Neck- Midline trachea, supple Respiratory system: Air Entry equal on both sides, No crackles or wheezing, no rhonchi. CVS- Rate rhythm regular, S1,S2 heard, no gallop, no rub. Abdomen- Soft nontender abdomen, mildly distended, but much improved from tense axscitsi from admission , no organomegaly, no tenderness, no guarding or rigidity, [employer]- AOOx3, moving all extremities, no gross focal deficit noted. OBJ DATA Labs CBC & Chem 7: 10/14/21 04:20 10/14/21 04:20 Labs: Abnormal Lab Results 10/14/21 10/14/21 10/13/21 04:20 04:20 10:01 WBC 15.5 H RBC 3.74 L Hgb 9.9 L Hct 30.2 L RDW 15.5 H Plt Count 674 H Neut % (Auto) 84.1 H Lymph % (Auto) 3.3 L [place] % (Auto) 12.2 H Lymph # (Auto) 0.51 L [place] # (Auto) 1.89 H Absolute Neutrophils 13.02 H PT 17.8 H INR 1.4 H Sodium 126 L Chloride 92 L Glucose 191 H Calcium 8.2 L Alkaline Phosphatase Total Protein 5.2 L Albumin 2.9 L Lipase 10/13/21 10/13/21 10:01 10:01 WBC 16.1 H RBC 3.72 L Hgb 9.8 L Hct 29.8 L RDW 15.7 H Plt Count 790 H Neut % (Auto) 84.9 H Lymph % (Auto) 4.2 L [place] % (Auto) Lymph # (Auto) 0.67 L [place] # (Auto) 1.70 H Absolute Neutrophils 13.68 H PT INR Sodium 124 L Chloride 86 L Glucose 173 H Calcium 8.5 L Alkaline Phosphatase 149 H Total Protein Albumin Lipase 4 L Meds: Medications Acetaminophen (Acetaminophen 325 Mg Tablet) 650 mg PO Q6HP PRN; Protocol PRN Reason: Per Pain Protocol/Fever > 101 Al Hydrox/Mg Hydrox/Simethicone (Mag Hydrox/Al Hydrox/Simeth 30 Ml Oral.Susp) 30 ml PO Q6HP PRN PRN Reason: Dyspepsia Albuterol Sulfate (Albuterol Sulfate 2.5 Mg/3 Ml Nebulizer) 2.5 mg NEB Q2HP PRN PRN Reason: Shortness Of Breath Lipase/Protease/Amylase (Lipase/Protease/Amylase 1 Cap Capsule) 1 cap PO 5XD [facility] Last Admin: 10/14/21 07:58 Dose: 1 cap Documented by: Apixaban (Apixaban 5 Mg Tablet) 5 mg PO BID [facility] Last Admin: 10/13/21 20:27 Dose: 5 mg Documented by: Bisacodyl (Bisacodyl 10 Mg Supp.Rect) 10 mg MA Q2-3DAYS PRN PRN Reason: Constipation Docusate Sodium (Docusate Sodium 100 Mg Capsule) 100 mg PO BID [facility] Last Admin: 10/13/21 20:26 Dose: 100 mg Documented by: Famotidine (Famotidine/Pf 20 Mg/2 Ml Vial) 20 mg IV Q12 [facility] Last Admin: 10/13/21 20:27 Dose: 20 mg Documented by: Hydromorphone HCl (Hydromorphone 0.5 Mg/0.5 Ml Syringe) 0.5 mg IV Q2HP PRN; Protocol PRN Reason: Per Pain Protocol Potassium Chloride/Sodium Chloride (Nacl 0.9% W/Kcl 20meq 1000ml) 1,000 mls @ 100 mls/hr IV .Q10H [facility] Levothyroxine Sodium (Levothyroxine 50 Mcg Tablet) 50 mcg PO QAMAC [facility] Last Admin: 10/14/21 07:58 Dose: 50 mcg Documented by: Magnesium Hydroxide (Magnesium Hydroxide 30 Ml Oral.Susp) 30 ml PO DAILYP PRN PRN Reason: Constipation Naloxone HCl (Naloxone Hcl 0.4 Mg/Ml Vial) 0.1 mg IV Q2MIN PRN PRN Reason: Opiate Reversal Nitroglycerin (Nitroglycerin 0.4 Mg Tab.Subl) 0.4 mg SL Q5M PRN PRN Reason: Chest Pain Ondansetron HCl (Ondansetron 4 Mg/2 Ml Vial) 4 mg IV Q6HP PRN PRN Reason: Nausea And Vomiting Oxycodone HCl (Oxycodone Hcl 5 Mg Tablet) 5 mg PO Q4HP PRN; Protocol PRN Reason: Per Pain Protocol Prochlorperazine (Prochlorperazine 10 Mg/2 Ml Vial) 5 mg IV Q4HP PRN PRN Reason: Nausea And Vomiting Senna (Sennosides 1 Tablet) 2 tab PO [facility] Last Admin: 10/13/21 20:26 Dose: 2 tab Documented by: Sodium Chloride (0.9 % Sodium Chloride 10 Ml Syringe) 10 ml IV Q8 [facility] Last Admin: 10/14/21 04:19 Dose: 10 ml Documented by: Trazodone HCl (Trazodone Hcl 50 Mg Tablet) 50 mg PO HSP PRN PRN Reason: Insomnia A/P Narrative A/P Narrative: A/P Ascitis, malignant Failure to thrive Hyponatremia, hypovolumic Hypoklaemia paroxsmal Atrial Fibrillation, rate controlled -on eliquis for anticoagulation Hypertension, essential H/o Metastatic Pancratic Cancer (Dr Young is oncologist) BPH HLD Leucoycytosis, suspect reactive, h/o Atrial Fibrillation Plan Admit as inpatient IV fluids to continue change for d5LR to NS with 20kcl US guided paracentesis done 8L fluid removed, Needs intermediate catheter placed by IR (to be done as outpatient) monitor sodium, NA 126 today K was 3.3, to be replaced Resume eiliquis tonight after paracentesis patient will eventually need IR consult for placement of a drain as outpatient. DVT - on eliquis Prognosis, guarded, plans for hospice once peritoneal drain is placed. DNR status per and patients will Time Spent With Patient Time: Total time spent is greater than 50% in coordination of care (as documented) at patient's floor/unit and/or counseling patient: Total time spent with greater than 50% in coordination of care (as documented) at patient's floor/unit and/or counseling patient:: Greater than 35 minutes QUALITY VTE Deep Vein Thrombosis/Pulmonary Embolism Present on Admission: No
[2021-10-14] MEDS: DOCUSATE SODIUM 100 MG CAPSULE PO SCH (10:10)
[2021-10-14] MEDS: APIXABAN 5 MG TABLET PO SCH (10:10)
[2021-10-14] MEDS: FAMOTIDINE/PF 20 MG/2 ML VIAL IV SCH (10:10)
--- NOTE | 2021-10-14 13:32 | Discharge Summary ---
Discharge Provider Provider Patient information: Note initiated : 10/14/21 at 1:30 pm Service Date, if different from initiated Date: [] Patient: Johny Umaña 81 y/o M admitted on 10/13/21 for abdominal distention. Chief Complaint: [] Date of admission: 10/13/21 16:34 Discharge date: 10/14/21 Primary care physician: Jennifer Wright Consults: 10/13/21 Consult to Physician [CONS] Stat Comment: Consulting Provider: Jose Golden Reason For Exam: Physician to Consult Discharge Meds Discharge Medications Home Medications apixaban 5 mg tablet (Eliquis) 5 mg PO BID 06/24/16 [History Confirmed 10/13/21 Last Taken 06/10/18 17:00] irbesartan 300 mg tablet 300 mg PO QDAY 12/15/18 [History Confirmed 10/13/21 Last Taken Unknown] metformin 500 mg tablet 500 mg PO QDAY tab 12/15/18 [History Confirmed 10/13/21 Last Taken Unknown] levothyroxine 50 mcg capsule 50 mcg PO QDAY 09/24/19 [History Confirmed 10/13/21 Last Taken Unknown] CPAP #1 ea 09/29/19 [Rx Confirmed 10/13/21 Last Taken Unknown] Auto-PaP #1 ea 10/07/19 [Rx Confirmed 10/13/21 Last Taken Unknown] lkyotb-rtuxjkst-yhswunp 36,000-114,000-180,000 unit capsule,delay rel (Creon) 1 cap PO 5XD 10/13/21 [History Confirmed 10/13/21 Last Taken Unknown] COURSE Hospital Course Hospital course: Interval history: History of present illness: Mr. Umaña is a 81 year old M wit h/o Cancer of the pancreas, status post Whipple's procedure approximately 2 years ago, subsequently developed recurrence and omental metastases, has been chemotherapy followed oncology locally. The patient it seems has not responded well to the chemotherapy agent. The patient is scheduled for an immunotherapy based chemotherapy next week. Over the last 1 week the patient has not been feeling well, he has had decreased appetite, nausea whenever he tries to eat some food, and progressive distention of abdomen. He denies any cough fever or chills. He denies any diarrhea, denies any blood in stools. No melena reported. The patient was scheduled for an outpatient paracentesis next week, however because of severe discomfort the patient presented to the hospital today. On my evaluation patient is hemodynamically stable, afebrile, lab work shows hyponatremia, patient is on Eliquis and last dose of Eliquis was yesterday morning. Given that the patient is in able to tolerate p.o., significant distention of the abdomen, patients can be admitted to the hospital for further management. 10/14 patietn seen examined, looks much better than yesterdfay Feels much better, abdominal pain improved Able to toleate po now Sodium still low at 126, Patients family is planning hospice, they need to get an IR directed paracentesis catheter first for comfort, which will be done as outpatient by IR at [facility] Await PT, Anticipate d/c tomorrow Patient originally wanted to wait till tomorrow to discharge but now wants to discharge today and family comfortable with him home today. Patient will get outpatient peritoneal catheter and then will follow up with hospice. A/P Ascitis, malignant Failure to thrive Hyponatremia, hypovolumic Hypoklaemia paroxsmal Atrial Fibrillation, rate controlled -on eliquis for anticoagulation Hypertension, essential H/o Metastatic Pancratic Cancer (Dr Young is oncologist) BPH HLD Leucoycytosis, suspect reactive, h/o Atrial Fibrillation Plan US guided paracentesis done 8L fluid removed, Needs nursing home catheter placed by IR (to be done as outpatient) patient will eventually need IR consult for placement of a drain as outpatient. Prognosis, guarded, plans for hospice once peritoneal drain is placed. Discharge diagnosis: Malignant ascites failure to thrive electrolyte disturbance Secondary discharge diagnosis: Paroxysmal A. fib hypertension metastatic pancreatic cancer BPH hyperlipidemia A. fib Time Spent with Patient Time attestation: Total time spent providing and/or coordinating discharge services: Time spent: Greater than 30 minutes EXAM Constitutional Vitals: Temp Pulse Resp BP Pulse Ox 98.4 F 93 H 20 107/62 95 10/14/21 12:00 10/14/21 04:00 10/14/21 12:00 10/14/21 12:10/14/21 12:00 Discharge Data Data Completed and Pending Labs on day of discharge: Labs from last 24 hours 10/14/21 10/14/21 10/13/21 04:20 04:20 15:33 WBC 15.5 H RBC 3.74 L Hgb 9.9 L Hct 30.2 L MCV 80.7 MCH 26.5 MCHC 32.8 RDW 15.5 H Plt Count 674 H MPV 9.3 Neut % (Auto) 84.1 H Lymph % (Auto) 3.3 L [place] % (Auto) 12.2 H Eos % (Auto) 0.1 Baso % (Auto) 0.3 Lymph # (Auto) 0.51 L [place] # (Auto) 1.89 H Eos # (Auto) 0.02 Baso # (Auto) 0.05 Absolute Neutrophils 13.02 H Sodium 126 L Potassium 3.3 Chloride 92 L Carbon Dioxide 24 Anion Gap 10.0 BUN 14 Creatinine 0.8 GFR Calculation 84 Glucose 191 H Uric Acid 6.5 Calcium 8.2 L Phosphorus 2.8 Magnesium 1.9 Total Bilirubin 0.5 Direct Bilirubin < 0.2 GGT 36 AST 17 ALT 10 Alkaline Phosphatase 115 Lactate Dehydrogenase 150 Total Protein 5.2 L Albumin 2.9 L Globulin 2.3 Albumin/Globulin Ratio 1.3 Triglycerides 60 Peritoneal Source Peritoneal Peritoneal Color [place] Peritoneal Appearance Turbid Peritoneal RBC <50,000 Per[place] Nuc Cells 9064 Periton Neutrophils 27 [place] Lymphocytes 2 Peritoneal Monocytes 69 Peritoneal Eosinophils 2 Peritoneal Albumin 10/13/21 15:11 WBC RBC Hgb Hct MCV MCH MCHC RDW Plt Count MPV Neut % (Auto) Lymph % (Auto) [place] % (Auto) Eos % (Auto) Baso % (Auto) Lymph # (Auto) [place] # (Auto) Eos # (Auto) Baso # (Auto) Absolute Neutrophils Sodium Potassium Chloride Carbon Dioxide Anion Gap BUN Creatinine GFR Calculation Glucose Uric Acid Calcium Phosphorus Magnesium Total Bilirubin Direct Bilirubin GGT AST ALT Alkaline Phosphatase Lactate Dehydrogenase Total Protein Albumin Globulin Albumin/Globulin Ratio Triglycerides Peritoneal Source Peritoneal Color Peritoneal Appearance Peritoneal RBC Periton Nuc Cells Periton Neutrophils Periton Lymphocytes Peritoneal Monocytes Peritoneal Eosinophils Peritoneal Albumin 2.3 Discharge Plan Patient/Caregiver Discharge Instructions Activity: increase activity as tolerated Diet: Regular Diet Instructions: Ascites (DC) Activity Restrictions/Additional Instructions: Resume home diet as tolerated. Take all meals up in chair, sitting at 90 degrees, to prevent aspiration. Increase activity as tolerated. Continue fall precautions. Return to ER for fever, chills, uncontrolled pain, inability to urinate or have a bowel movement, nausea and/or vomiting, swelling, redness, signs of infection, shortness of breath, chest pain, return of symptoms, or other acute symptom This discharge packet is provided to you to help keep you informed about your care. We want to ensure you get everything you need when you go home. You will also be receiving a call from us in a few days to follow up with you and see how you are doing since your discharge. This gives us a chance to listen to any concerns you maybe experiencing since you were discharged or any additional needs you may have, as well as providing us feedback on your care experience. We strive to always provide excellent care and thank you for your feedback and for choosing [facility]. Prescriptions: Continued (DME) CPAP Qty: 1 0RF Rx Instructions: pressure at [id number] pressure with mask and supplies. (DME) Auto-PaP Qty: 1 0RF Rx Instructions: change pressures to [id number]. metformin 500 mg tablet 500 mg PO QDAY 0RF irbesartan 300 mg tablet 300 mg PO QDAY 0RF apixaban [Eliquis] 5 mg tablet 5 mg PO BID 0RF levothyroxine 50 mcg capsule 50 mcg PO QDAY 0RF Creon 36,000-114,000- 180,000 unit capsule,delayed release(DR/EC) 1 cap PO 5XD 0RF Follow Up Plan Follow up with: Jennifer Wright MD [Primary Care Provider] - (Follow up in 5-7 days. Contact the office Sunday 10/15 to schedule) Patient Disposition: Home, Self-Care Prognosis: Fair Rehab Potential: Serious Discharge Orders: Discharge Order (Routine); Ordered 10/14/21 Ordered By: Marlon Rock Discharge Comment: Pt. d/c home with . QUALITY VTE Deep Vein Thrombosis/Pulmonary Embolism Present on Admission: No
== END 2021-10-14 16:50 | disposition home or self-care (01) | DRG 375 ==
LOC: ED 09:21 → MEDSUR 16:34
PROVIDERS: ADMIT Internal Medicine; ATTEND Internal Medicine